=== PATIENT | male | born 1990 | race Two or more races ===

== ENCOUNTER 2023-10-18 00:57 | Emergency (ER) | payer MEDICAID ==
[~2023-10-18] VITALS: Ht 182.9 cm; Wt 168.8 kg
[2023-10-18] MEDS ORDERED: CLIN1CAP70 PO (04:00)
[2023-10-18] MEDS ORDERED: IBUP-1456 PO (04:00)
[2023-10-18] MEDS: CLINDAMYCIN 600MG IV 50 ML IV ONE (05:04)
[2023-10-18] MEDS: KETOROLAC TROMETH 30 MG/ML 1ML VIAL IV ONE (05:54)
[2023-10-18 06:23] VITALS: BP 147/75; PULSE 59; RESP 17; TEMP 98.6; O2SAT 99
== END 2023-10-18 06:28 | disposition home or self-care (01) ==
LOC: ER 00:57
DX: L03.116 Cellulitis of left lower limb (principal); I10 Essential (primary) hypertension; Z79.899 Other long term (current) drug therapy
CPT/HCPCS: 96365; 96375; 99284; J1885; J3490